=== PATIENT | male | born 2000 | race Two or more races ===

== ENCOUNTER 2024-09-22 16:59 | Emergency (ER) | payer BC, OTHER ==
[~2024-09-22] VITALS: Ht 185.4 cm; Wt 119.0 kg
--- NOTE | 2024-09-22 17:30 | ED.PDOC ---
History of Present Illness HPI Comments 24M presents to the ER w/ a prior history of asthma that is usually well controlled, associated to the c/c of SOB. Pt reports on having a albuterol yesterday and woke up from his sleep last night due from constant coughing and used it for "60 puffs". Pt was also having back pain last night as well. Denies chills, fever, N/V/D, CP or other associated symptom's, modifiers, or recent injuries or sick contact at this time. Vital signs were stable on arrival. Time Seen by MD: 17:25 Reviewed Notes: Nurses Notes, Medications, Allergies Information Source: Patient Mode of Arrival: Ambulatory Severity: Moderate Timing: Hours Duration: Since onset, Hours Prehospital treatment: None Past Medical History PAST MEDICAL HISTORY: Denies Surgical History: Denies all surgeries Family History Family History: Reviewed,noncontributory to illness, Unknown Social History Smoker: Non-Smoker Alcohol: Denies ETOH Use Drugs: Denies Drug Use Lives In: Home Constitutional: denies: chills, diaphoresis, fatigue, fever, malaise, sweats, weakness, others EENTM: denies: blurred vision, double vision, ear bleeding, ear discharge, ear drainage, ear pain, ear ringing, eye pain, eye redness, hearing loss, mouth pain, mouth swelling, nasal discharge, nose bleeding, nose congestion, nose pain, photophobia, tearing, throat pain, throat swelling, voice changes, others Respiratory: reports: cough, SOB at rest, shortness of breath; denies: hemoptysis, orthopnea, SOB with excertion, stridor, wheezing, others Cardiovascular: denies: chest pain, dizzy spells, diaphoresis, Dyspnea on exertion, edema, irregular heart beat, left arm pain, lightheadedness, palpitations, PND, syncope, others Gastrointestinal: denies: abdomen distended, abdominal pain, blood streaked bowels, constipated, diarrhea, dysphagia, difficulty swallowing, hematemesis, melena, nausea, poor appetite, poor fluid intake, rectal bleeding, rectal pain, vomiting, others Genitourinary: denies: burning, dysuria, flank pain, frequency, hematuria, incontinence, penile discharge, penile sore, pain, testicle pain, testicle swelling, urgency, others Neurological: denies: dizziness, fainting, headache, left sided numbness, left sided weakness, numbness, paresthesia, pre-existing deficit, right sided numbness, right sided weakness, seizure, speech problems, tingling, tremors, weakness, others Musculoskeletal: reports: back pain; denies: gout, joint pain, joint swelling, muscle pain, muscle stiffness, neck pain, others Integumetry: denies: bruises, change in color, change in hair/nails, dryness, laceration, lesions, lumps, rash, wounds, others Allergic/Immunocompromised: denies: Difficulty Healing, Frequent Infections, Hives, Itching, others Hematologic/Lymphatic: denies: anemia, blood clots, easy bleeding, easy bruising, swollen glands, others Endocrine: denies: excessive hunger, excessive sweating, excessive thirst, excessive urination, flushing, intolerance to cold, intolerance to heat, unexplained weight gain, unexplained weight loss, others Psychiatric: denies: anxiety, bipolar disorder, depression, hopeless, panic disorder, schizophrenia, sleepless, suicidal, others All Other Systems: Reviewed and Negative Physical Exam General Appearance: Moderate Distress (Patient is a [id number] distress at time of evaluation due to shortness a breath and coughing concerns.), Obese HEENT: Normal ENT Inspection, Pharynx Normal, TMs Normal Neck: Full Range of Motion, Non-Tender, Normal, Normal Inspection Respiratory: Chest Non-Tender, No Accessory Muscle Use, No Respiratory Dis tress, Other (Mild wheeze appreciated right middle and right lower lobe.) Cardiovascular: No Edema, No JVD, No Murmur, No Gallop, Normal Peripheral Pulses, Regular Rate/Rhythm Breast Exam: Deferred Gastrointestinal: No Organomegaly, Non Tender, No Pulsatile Mass, Normal Bowel Sounds, Soft Genitalia: Deferred Pelvic: Deferred Rectal: Deferred Extremities: No calf tenderness, Normal capillary refill, Normal inspection, Normal range of motion, Non-tender, No pedal edema Musculoskeletal : Apperance: Normal Neurologic: Alert, No Motor Deficits, Normal Affect, Normal Mood, No Sensory Deficits Cerebellar Function: Normal Reflexes: Normal Skin: Dry, Normal Color, Warm Lymphatic: No Adenopathy Was a procedure done? Was a procedure done?: No Differential Dx Considerations may include: Acute asthma exacerbation, viral upper respiratory illness, pneumonia X-Ray, Labs, Meds, VS Vital Signs Date Time Temp Pulse Resp B/P (MAP) Pulse Ox O2 Delivery O2 Flow Rate FiO2 09/22/24 17:41 20 95 Nasal Cannula* 2 28 09/22/24 17:33 16 95 Nasal Cannula* 2 28 09/22/24 17:33 99.1 123 16 152/85 (107) 92 Current Medications Medications (Trade) Dose Ordered Sig/Heidi Route Start Time Stop Time Status Last Admin Ipratropium [place] (Atrovent Medneb) 0.5 mg ONCE ONCE NEB 09/22/24 17:30 09/22/24 17:31 DC 09/22/24 17:41 Levalbuterol HCl (Xopenex Medneb) 1.25 mg ONCE STAT NEB 09/22/24 17:25 09/22/24 17:27 DC 09/22/24 17:41 Dexamethasone Sodium Phosphate (Decadron Injection) 10 mg ONCE ONCE IM 09/22/24 17:30 09/22/24 17:31 DC 09/22/24 17:37 X-Ray, Labs, Meds, VS Comment All studies performed in the ED today were evaluated by me personally. Imaging studies showed some mild consolidation in bilateral lower lung ahuja. Patient was given a 1st dose of azithromycin to address the developing pneumonia. Advised patient utilize medication as directed until completion as well as additional medication as needed. Time of 1ST Reevaluation: 18:01 Reevaluation 1ST: Improved Consultation: PCP Patient Education/Counseling: Diagnosis, Treatment, Prognosis Family Education/Counseling: Diagnosis, Treatment, No Family Present Departure 1 Departure Time of Disposition: 18:01 Impression: Primary Impression: Pneumonia Disposition: 01 HOME / SELF CARE / HOMELESS Condition: Stable Additional Instructions: Advise utilizing antibiotics as directed until completion as well as additional medication as needed for symptomatic relief. Patient should practice good hydration and healthy nutrition throughout illness event. e-Prescriptions Albuterol Sulfate (Albuterol Sulfate Hfa) 108 Mcg/Act Aer 108 MCG IN Q4HP PRN, #1 AER Prov: SRAVANI EVANS PAC 09/22/24 Budesonide-Formoterol Fumarate (Budesonide/Formoterol Fum 160-4.5 Mcg/Act) 1 Aer Aer 2 AER IN BID for 5 Days, #1 AER Prov: SRAVANI EVANS [facility] 09/22/24 Azithromycin (ZITHROMAX TABLET) 250 Mg Tb 250 MG PO DAILY for 4 Days, #4 TAB Patient to take 1st tablet on 09/23/2024 Prov: SRAVANI EVANS PAC 09/22/24 Discharged With: Self, Friend Critical Care Note Critical Care Time?: No Stability Stability form required: No Heart Score Heart Score: Heart Score Response (Comments) Value History N/A 0 EKG N/A 0 Age N/A 0 Risk Factors N/A 0 Troponin N/A 0 Total 0 I personally scribed for SRAVANI EVANS PAC ([email or web address]) on 09/22/24 at 17:30. Electronically submitted by Avinash Vaughn ([email or web address]). SRAVANI EVANS PAC Sep 22, 2024 17:30
[2024-09-22] MEDS: DexAMETHasone SOD PHOS 10MG/1ML VIAL INJ IM ONE (17:37)
[2024-09-22] MEDS: IPRATROPIUM BROM 0.5 MG/2.5ML INH SOL NEB ONE (17:41)
[2024-09-22] MEDS: LEVALBUTEROL HCL 1.25 MG/3 ML NEB NEB STA (17:41)
--- NOTE | 2024-09-22 17:41 | DVH ---
CHEST RADIOGRAPH Indication: Shortness of breath Technique: Single frontal view of the chest was obtained Comparison: None FINDINGS: Lines and Tubes: None Lungs: Right mid and left lower lung zone patchy and curvilinear opacities. Pleura: No effusion. No pneumothorax. Cardiomediastinal contours: Unremarkable Bones: No acute osseous abnormality. IMPRESSION: 1. Right mid and left lower lung zone opacities could represent infiltrates versus atelectasis. Need s correlation with clinical findings. HS:Y
[2024-09-22] MEDS ORDERED: BUDE1AER4 IN (18:05)
[2024-09-22] MEDS ORDERED: AZIT-185 PO (18:05)
[2024-09-22] MEDS ORDERED: ALBU108A5 IN (18:05)
[2024-09-22] MEDS: AZITHROMYCIN 250 MG TAB PO ONE (18:06)
[2024-09-22 18:16] VITALS: BP 137/81; PULSE 100; RESP 19; TEMP 98.3; O2SAT 96
== END 2024-09-22 18:19 | disposition home or self-care (01) ==
LOC: ER 16:59
DX: J18.9 Pneumonia, unspecified organism (principal)
CPT/HCPCS: 71045; 94640; 96372; 99283; J1100